=== PATIENT | female | born 1955 | race Two or more races ===

== ENCOUNTER 2017-10-26 16:32 | Inpatient (IN) | payer OTHER, SELFPAY ==
[2017-10-26 16:59] LABS: pH, Arterial 7.23 (7.35-7.45)
[2017-10-26 17:00] LABS: Actual Bicarbonate (HCO3a) 16.6 mEq/L (22-26); Base Excess (BEa) -10.4 mEq/L (0 (+/-) 2.5); CO2 Tension 40.8 mmHg (35.0-45.0); Hematocrit-ABG 38.3 % (36.0-47.0); Hemoglobin (Hb) 12.2 g/dL (12.0-16.0); O2 Tension (PaO2) 146.6 mmHg (80.0-100.0)
[2017-10-26 17:01] LABS: Analyzer IN Cardio ER; Puncture Site RRA
[2017-10-26 18:31] LABS: Magnesium 1.1 mg/dL (1.6-2.6); Phosphorus 3.1 mg/dL (2.3-4.7)
--- NOTE | 2017-10-26 19:39 | RAD ---
CHEST ONE VIEW 10/26/17 HISTORY: Septic shock. Chest pain. FINDINGS: No comparison. The cardiac silhouette is magnified by projection. Pulmonary vasculature is unremarkable. Mediastinum is midline. A right subclavian central venous catheter is buckled over the superior vena cava, with the tip directed over the junction of the brachiocephalic veins. No evidence of pneumothorax. traffic monitor specialist leads overlie the chest. IMPRESSION: Right subclavian central venous catheter is buckled over the superior vena cava. If it flushes; howev er, it is probably in an acceptable position. POS: [facility]
[2017-10-26] MEDS ORDERED: Norepinephrine 8 MG/0.9% NS 250 ML IVPB PRN (20:49)
[2017-10-26] MEDS ORDERED: Lacri-Lube Opth Oint 3.5 GM TUBE EA EYE PRN (20:49)
[2017-10-26] MEDS ORDERED: Acetaminophen 650 MG/20.3 ML UDCUP PO PRN (20:49)
[2017-10-26] MEDS ORDERED: Acetaminophen 325 MG Suppository PR PRN (20:49)
[2017-10-26] MEDS ORDERED: Ondansetron HCl/PF 4 MG/2 ML Vial IVP PRN (20:49)
[2017-10-26] MEDS ORDERED: Senokot 8.6 MG TAB PO PRN (20:51)
[2017-10-26] MEDS ORDERED: Calcium Carbonate 500 MG ChewTAB PO PRN (20:51)
[2017-10-26] MEDS ORDERED: Famotidine 20 MG TAB PO SCH (21:00)
[2017-10-26] MEDS ORDERED: Norepinephrine 8 MG in Sodium Chloride 0.9% 250 ML 250 ML IVPB PRN (21:09)
[2017-10-26] MEDS ORDERED: Magnesium Sulfate 4 GM in Sodium Chloride 0.9% 250 ML 250 ML IVPB SCH (21:15)
[2017-10-26] MEDS ORDERED: Meropenem 1 GM in Sodium Chloride 0.9% 100 ML IVPB SCH (22:00)
[2017-10-26] MEDS: Sodium Chloride 0.9% 1,000 ML IV SCH (23:05)
[2017-10-26] MEDS: Docusate 100 MG CAP PO SCH (23:13)
[2017-10-26] MEDS: Meropenem 1 GM in Sterile Water 20 ML SLOW IVP SCH (23:17)
--- NOTE | 2017-10-26 23:20 | PDOC.PN ---
- Subjective Encounter Start Date: 10/26/17 Encounter Start Time: 20:00 Patient seen and examined. Note dictated. - Objective Resuscitation Status: Resuscitation Status FULL:Full Resuscitation MAR Reviewed: Yes Vital Signs & Weight: Vital Signs (12 hours) Temp Pulse Resp Pulse Ox 10/26/17 20:00 97.9 F 87 19 98 10/26/17 19:29 87 20 100 Most Recent Monitor Data Heart Rate from ECG 83 NIBP 108/63 NIBP BP-Mean 70 Respiration from ECG 20 SpO2 99 I&O: 10/25/17 10/26/17 10/27/17 06:59 06:59 06:59 Intake Total 0 Output Total 320 Balance -320 Additional Labs: Laboratory Tests 10/26/17 17:52 Magnesium 1.1 L Phys Exam - Physical Examination Pt in mild resp distress, on NIPPV HEENT: PERRLA, moist MMs, sclera anicteric Neck: no nodes, no JVD, supple Respiratory: no rales Minimal wheezing/rhonchi, Symmetrical. Cardiovascular: RRR, no rub no heaves/pulsations Gastrointestinal: soft, non-tender, no distention, positive bowel sounds Musculoskeletal: no edema Neurological: non-focal, normal sensation, moves all 4 limbs Psychiatric: normal affect, A&O x 3 Skin: no rash Dx/Plan - Plan continue antibiotics, respiratory therapy, DVT proph w/lovenox, DVT proph w/SCDs * Dictated Review of Systems - Review of Systems Other: Cannot be reliably obtained due to NIPPV - Medications/Allergies Allergies/Adverse Reactions: Allergies Allergy/AdvReac Type Severity Reaction Status Date / Time Quinolones Allergy Verified 10/26/17 20:01 Medications: Current Medications Acetaminophen (Tylenol Elixir) 650 mg PO Q6H PRN PRN Reason: Fever > 101 or Mild Pain Acetaminophen (Tylenol) 650 mg [place] Q6H PRN PRN Reason: Fever > 101 or Mild Pain Acetaminophen (Tylenol) 650 mg PO Q4H PRN PRN Reason: Headache/Fever or Pain Albuterol/Ipratropium (Duoneb) 3 ml NEB [id number] SANDRA Albuterol/Ipratropium (Duoneb) 3 ml NEB Q2H PRN PRN Reason: SOB &/or Wheezing Calcium Carbonate (Tums) 1,000 mg PO Q4H PRN PRN Reason: Heartburn or Indigestion Docusate Sodium (Colace) 100 mg PO BID [facility] Last Admin: 10/26/17 23:13 Dose: 100 mg Enoxaparin Sodium (Lovenox) 40 mg SC 0900 [facility] Magnesium Sulfate 4 gm/ Sodium (Chloride) 258 mls @ 86 mls/hr IVPB NOW SANDRA Stop: 10/27/17 00:14 Last Admin: 10/26/17 23:01 Dose: 258 mls Vancomycin HCl 1 gm/ Device 200 mls @ 200 mls/hr IVPB ASDIR [facility] Norepinephrine Bitartrate (Levophed) 250 mls @ 0 mls/hr IVPB PRN PRN; Protocol ; Titrate PRN Reason: To maintain MAP > 65 Sodium Chloride (Normal Saline 0.9%) 1,000 mls @ 50 mls/hr IV .Q20H [facility] Last Admin: 10/26/17 23:05 Dose: 1,000 mls Norepinephrine Bitartrate 8 mg (/ Sodium Chloride) 258 mls @ 0 mls/hr IVPB PRN PRN; Protocol; Titrate PRN Reason: To maintain MAP > 65 Meropenem 1 gm/ Sterile Water 20 mls @ 240 mls/hr SLOW IVP 0600,1400,2200 [facility] Last Admin: 10/26/17 23:17 Dose: 20 mls Mineral Oil/White Petrolatum (Lacri-Lube Ointment) 0 gm EA EYE PRN PRN PRN Reason: Dry Eyes Miscellaneous Medication (Pharmacy To Dose) 1 each IVPB ONE PRN PRN Reason: Pharmacy to dose Ondansetron HCl (Zofran) 4 mg IVP Q6H PRN PRN Reason: Nausea/Vomiting Pantoprazole Sodium (Protonix) 40 mg PO DAILY [facility] Senna (Senokot) 2 tab PO HSPRN PRN PRN Reason: Constipation Sodium Chloride (Flush - Normal Saline) 10 ml IVF PRN PRN PRN Reason: Saline Flush
--- NOTE | 2017-10-26 23:44 | HP ---
DATE OF ADMISSION: 10/26/2017 PRIMARY CARE PHYSICIAN: Dr. Vasquez. CHIEF COMPLAINT: Fever with upper respiratory tract infection. HISTORY OF PRESENT ILLNESS: Patient is a 62-year-old female with COPD with ongoing tobacco abuse who presented to her primary care physician's office earlier today with upper respiratory tract infectio n over the last 2 days. She also had subjective fever. Her grandchild has been sick. She also had nasal drainage along with productive cough. She also complained of generalized aches and fatigue. S he had chest congestion along with wheezing as well. No skin rash, dysuria, hematuria, urgency, naus ea, vomiting, diarrhea reported. At the primary care physician's office, the patient received intramuscular Rocephin 250 mg, Kenalog 1 0 mg and 40 mg Depo-Medrol after a negative influenza screen. She was then discharged home. She had a syncopal episode outside the primary care physician's office for which she was sent to [facility]. Patient was also lethargic and in respiratory distress. Her O2 sats were in 80s. Bl ood pressure was 43/30. She received 6 liters of IV fluid along with vancomycin. She was placed on CPAP. She was transferred to this facility by air ambulance. Her blood pressure improved to 93/58 a fter IV fluids. She was started on Levophed. A central line was placed at this facility. PAST MEDICAL HISTORY: 1. COPD. 2. Tobacco dependence. 3. Hyperlipidemia. 4. Diverticulosis. 5. Fibromyalgia. 6. Chronic back pain. 7. Gastroesophageal reflux disease. PAST SURGICAL HISTORY: 1. Tonsillectomy in 1970, appendectomy in 1984, cholecystectomy in 1984. 2. EGD in 08/2017 that showed moderate gastritis involving the mid and the distal stomach. 3. Colonoscopy in 2013 that showed mild sigmoid colon diverticulosis along with internal hemorrhoids . 4. Back injections for chronic back pain. ALLERGIES: Patient is allergic to QUINOLONES. CURRENT HOME MEDICATIONS: Nebulizer treatment as needed, diclofenac 50 mg daily, Advair Diskus 250/5 0 twice a day as needed, Protonix 40 mg once a day. SOCIAL HISTORY: The patient denies any alcohol or drug use. She has history of smoking. FAMILY HISTORY: Father with emphysema. REVIEW OF SYSTEMS, PHYSICAL EXAMINATION: Please refer to progress note from today. LABORATORY DATA AND X-RAY FINDINGS: From [facility]. 1. Chemistries showed sodium of 135, potassium 3.3, chloride 98, bicarbonate 22, BUN 10, creatinine 1.1. 2. Bilirubin was 0.5. Total CK 104. WBC was 13,000 with hemoglobin 15, hematocrit 44.6, platelet o f 292. 3. Urinalysis was negative for WBC or bacteria. 4. Chest x-ray at [facility] was negative for infiltrate. 5. Telemetry monitoring by my review showed sinus rhythm. 6. Blood gases at this facility showed pH 7.23 with pCO2 of 40.8, bicarbonate 16.6. 7. Magnesium 1.1. Lactic acid was 1.3. Cortisol level 15.0. 8. Chest x-ray by my review was negative for infiltrate. IMPRESSION AND PLAN: 1. Severe sepsis with acute organ dysfunction/septic shock. Exact etiology unclear, probably upper respiratory tract infection/acute bronchitis. 2. Chronic obstructive pulmonary disease exacerbation/acute hypoxic respiratory failure status post noninvasive positive pressure ventilation. 3. Hypomagnesemia. 4. Ongoing tobacco abuse. 5. Chronic pain syndrome. 6. Hyperlipidemia. 7. Gastroesophageal reflux disease. 8. Depression. 9. Diverticulosis. 10. Metabolic acidosis. 12. Obesity with a BMI of 34. PLAN: The patient will be monitored in the Intensive Care Unit. We will replace magnesium. We will continue vancomycin and meropenem empirically. The patient has received 6 liters of IV fluid. We w ill continue NS at 50 mL per hour. Continue Levophed. Continue proton pump inhibitors. P.r.n. medi cations. Deep venous thrombosis prophylaxis. Tobacco cessation was emphasized. Due to buckling of the central venous catheter, I do not thing CVP monitoring would be helpful. We will consult Vamshi Ferrara in a.m. Continue noninvasive positive pressure ventilation for now. The right subclavian skyla tral venous catheter is buckled over the superior vena cava. We will replace magnesium and recheck l abs in a.m. CODE STATUS: FULL CODE. Plan of care was discussed with the patient. She stated understanding
[2017-10-27 03:16] VITALS: BMI 20.8
[2017-10-27 05:12] LABS: Band 7 % (5-11); Hemoglobin 12.7 g/dL (12.0-16.0); MDiff Complete? YES; Mean Corpuscular HGB CONC 33.2 g/dL (32.0-36.0); Mean Corpuscular Hemoglobin 33.5 pg (27.0-31.0); Mean Platelet Volume 7.8 fL (7.4-10.4); Monocytes 2 % (0-10); Neutrophil 91 % (42-75); Platelet Count 238 thou/uL (130-400); Red Blood Cell (RBC) Count 3.79 mill/uL (4.20-5.40); White Blood Cell (WBC) Count 9.2 thou/uL (4.8-10.8)
[2017-10-27 05:21] LABS: ALT (SGPT) 96 U/L (8-55); AST (SGOT) 111 U/L (5-34); Alkaline Phosphatase 117 U/L (40-150); Anion Gap 10 mmol/L (10-20); BUN (Urea Nitrogen) 8 mg/dL (9.8-20.1); Bilirubin, Total 0.3 mg/dL (0.2-1.2); Calc. Creatinine Clearance 72 mL/min (70-130); Calcium 7.8 mg/dL (7.8-10.44); Carbon Dioxide 22 mmol/L (22-29); Chloride 112 mmol/L (98-107); Estimated GFR-MDRD 85; Globulin 2.6 g/dL (2.4-3.5); Glucose 144 mg/dL (70-105); Magnesium 2.4 mg/dL (1.6-2.6); Protein, Total 5.6 g/dL (6.0-8.3); Sodium 140 mmol/L (136-145)
[2017-10-27] MEDS: Meropenem 1 GM in Sterile Water 20 ML SLOW IVP SCH ×3 (06:35→21:00)
--- NOTE | 2017-10-27 08:13 | RAD ---
PORTABLE AP CHEST: Date: 10/27/17 HISTORY: Sepsis, pneumonia. COMPARISON: 10/26/17. FINDINGS: Right subclavian central venous catheter is again noted in place. The tip now courses across the midl ine to overlie the left clavicular head. Cardiac silhouette and pulmonary vasculature are within norm al limits. Lungs are clear. Vascular calcifications seen in the thoracic aorta. No other interval reynaldo nge. IMPRESSION: Right subclavian central venous catheter remains in place. The catheter now courses across the midlin e with the tip overlying the left clavicular head. Chest is otherwise stable. POS: [facility]
[2017-10-27] MEDS: Docusate 100 MG CAP PO SCH ×2 (08:54→20:40)
[2017-10-27] MEDS ORDERED: Enoxaparin Sodium 40 MG/0.4 ML SYRINGE SC SCH (09:00)
--- NOTE | 2017-10-27 09:20 | CON ---
DATE OF CONSULTATION: 10/27/2017 CONSULTING PHYSICIAN: Hospitalist group. REASON FOR CONSULTATION: Septic shock. HISTORY OF PRESENT ILLNESS: Ms. Krishna is a pleasant 62-year-old female who presented to her primary care physician's office yesterday with symptoms of upper respiratory infection for the last 2 days. She was given IM Depo-Medrol, Kenalog and Rocephin and then sent home. She came back later after hav ing a syncopal episode. She was found to be extremely hypotensive with low O2 sats. She was given u p to 6 liters of IV fluid and was placed on broad-spectrum IV antibiotics, IV Levophed and transferre d to this facility. She says she feels better today. She was weaned off the vasopressor overnight a nd has had a good blood pressure all morning. PAST MEDICAL HISTORY: Hyperlipidemia, fibromyalgia, chronic back pain, gastroesophageal reflux, hist ory and physical says she has COPD, but she denies. PAST SURGICAL HISTORY: Tonsillectomy, cholecystectomy, appendectomy, EGD and colonoscopy, back injec tions. ALLERGIES: QUINOLONES cause hives. MEDICATIONS PRIOR TO ADMISSION: Diclofenac, Advair, Protonix, nebulization treatments. SOCIAL HISTORY: Smokes 1 pack a day and has done so all of her adult life, does not consume alcohol, does not use illicit drugs. FAMILY MEDICAL HISTORY: Remarkable for father with emphysema. REVIEW OF SYSTEMS: A 12-point review of systems otherwise negative. PHYSICAL EXAMINATION: VITAL SIGNS: Temperature 98, pulse 92, blood pressure 130/64, O2 sat 100%. HEENT: Unremarkable. NECK: No JVD. LUNGS: Clear to auscultation. CARDIAC: S1, S2 regular, without murmur. ABDOMEN: Soft, nontender, nondistended. EXTREMITIES: No clubbing, cyanosis or edema. NEUROLOGIC: Nonfocal. LABORATORY DATA: Sodium 140, potassium 4.0, chloride 112, CO2 22, BUN 8, creatinine 0.7, glucose 144 . White blood cell count 9.2, hematocrit 38.3, platelet count 238. Chest x-ray showed no obvious mass, effusion or infiltrate. ASSESSMENT: Septic shock which appears to have resolved after hydration. Source is not clear at thi s time. PLAN: The patient will be transferred to the floor. She will continue broad spectrum IV antibiotics . We will follow up culture results. Continue nebulization treatments and low flow oxygen.
[2017-10-27] MEDS: Vancomycin HCl 1.25 GM in Sodium Chloride 0.9% 250 ML 250 ML IVPB SCH (13:33)
[2017-10-27] MEDS: Diabetic Tussin 200 MG/10 ML UDCUP PO PRN (14:43)
[2017-10-27] MEDS: Sodium Chloride 0.9% 1,000 ML IV SCH ×2 (18:10→20:54)
--- NOTE | 2017-10-27 19:24 | PDOC.PN ---
- Subjective Encounter Start Date: 10/27/17 Encounter Start Time: 12:30 Patient seen and examined. No new complaints. Off pressors. No overnight events - Objective Resuscitation Status: Resuscitation Status FULL:Full Resuscitation MAR Reviewed: Yes Vital Signs & Weight: Vital Signs (12 hours) Temp Pulse Resp BP Pulse Ox 10/27/17 18:57 124 H 18 92 L 10/27/17 15:55 98.5 F 112 H 18 132/65 94 L 10/27/17 13:58 85 18 96 10/27/17 11:00 97.7 F 105 H 18 128/60 94 L 10/27/17 08:00 98 F 110 H 19 98 10/27/17 07:52 99 10/27/17 07:50 100 20 98 Weight Admit Weight 117 lb 2 oz Most Recent Monitor Data Heart Rate from ECG 105 NIBP 125/62 NIBP BP-Mean 73 Respiration from ECG 25 SpO2 100 I&O: 10/26/17 10/27/17 10/28/17 06:59 06:59 06:59 Intake Total 827 1284 Output Total 2069 0980 Balance -4432 -4348 Result Diagrams: 10/27/17 04:39 10/27/17 04:39 EKG Reviewed by me: Yes (Tele SR) Phys Exam - Physical Examination Constitutional: NAD HEENT: moist MMs, sclera anicteric Neck: no JVD Respiratory: no rales Scat rhonchi/wheezing, Symmetrical Cardiovascular: RRR, no rub no heaves/pulsations Gastrointestinal: soft, non-tender, no distention, positive bowel sounds Musculoskeletal: no edema Neurological: non-focal, normal sensation, moves all 4 limbs Psychiatric: normal affect, A&O x 3 Skin: no rash Dx/Plan - Plan DVT proph w/lovenox, DVT proph w/SCDs IMPRESSION: 1. Severe sepsis with acute organ dysfunction/septic shock. Exact etiology unclear, probably upper respiratory tract infection/acute bronchitis. 2. Chronic obstructive pulmonary disease exacerbation/acute hypoxic respiratory failure status post noninvasive positive pressure ventilation. 3. Hypomagnesemia. 4. Ongoing tobacco abuse. Counselled 5. Chronic pain syndrome. 6. Hyperlipidemia. 7. Gastroesophageal reflux disease. 8. Depression. 9. Diverticulosis. 10. Metabolic acidosis. 12. Obesity with a BMI of 34. PLAN: * Resp viral panel * Critical care input appreciated * Await cultures * Cont Atbx * AM labs * Cont current meds as below * CHASE Sim * Cont IVF @ 50 Review of Systems - Review of Systems Respiratory: Cough, Sputum, Wheezing. negative: Dry, Shortness of Breath, Hemoptysis, SOB with Excertion, Pleuritic Pain Cardiovascular: negative: chest pain, palpitations, orthopnea, paroxysmal nocturnal dyspnea, edema, light headedness - Medications/Allergies Allergies/Adverse Reactions: Allergies Allergy/AdvReac Type Severity Reaction Status Date / Time Quinolones Allergy Verified 10/26/17 20:01 Medications: Current Medications Acetaminophen (Tylenol Elixir) 650 mg PO Q6H PRN PRN Reason: Fever > 101 or Mild Pain Acetaminophen (Tylenol) 650 mg RI Q6H PRN PRN Reason: Fever > 101 or Mild Pain Acetaminophen (Tylenol) 650 mg PO Q4H PRN PRN Reason: Headache/Fever or Pain Albuterol/Ipratropium (Duoneb) 3 ml NEB [id number] [facility] Last Admin: 10/27/17 18:57 Dose: 3 ml Albuterol/Ipratropium (Duoneb) 3 ml NEB Q2H PRN PRN Reason: SOB &/or Wheezing Calcium Carbonate (Tums) 1,000 mg PO Q4H PRN PRN Reason: Heartburn or Indigestion Docusate Sodium (Colace) 100 mg PO BID [facility] Last Admin: 10/27/17 08:54 Dose: 100 mg Guaifenesin (Robitussin Sf) 200 mg PO Q4H PRN PRN Reason: Cough Last Admin: 10/27/17 14:43 Dose: 200 mg Guaifenesin (Mucinex) 600 mg PO Q12HR [facility] Vancomycin HCl 1.25 gm/ Sodium (Chloride) 250 mls @ 200 mls/hr IVPB 1400 [facility] Last Admin: 10/27/17 13:33 Dose: 250 mls Sodium Chloride (Normal Saline 0.9%) 1,000 mls @ 50 mls/hr IV .Q20H [facility] Last Admin: 10/27/17 18:10 Dose: Not Given Meropenem 1 gm/ Sterile Water 20 mls @ 240 mls/hr SLOW IVP 0600,1400,2200 [facility] Last Admin: 10/27/17 13:33 Dose: 20 mls Mineral Oil/White Petrolatum (Lacri-Lube Ointment) 0 gm EA EYE PRN PRN PRN Reason: Dry Eyes Miscellaneous Medication (Pharmacy To Dose) 1 each IVPB ONE PRN PRN Reason: Pharmacy to dose Stop: 11/06/17 20:49 Nicotine (Nicoderm Patch) 14 mg TD Q24HR PRN PRN Reason: Smoking craving Ondansetron HCl (Zofran) 4 mg IVP Q6H PRN PRN Reason: Nausea/Vomiting Pantoprazole Sodium (Protonix) 40 mg PO DAILY [facility] Last Admin: 10/27/17 08:54 Dose: 40 mg Senna (Senokot) 2 tab PO HSPRN PRN PRN Reason: Constipation Sodium Chloride (Flush - Normal Saline) 10 ml IVF PRN PRN PRN Reason: Saline Flush
[2017-10-27] MEDS: Acetaminophen 325 MG TAB PO PRN (20:39)
[2017-10-27] MEDS: guaiFENesin ER 600 MG TAB PO SCH (20:39)
[2017-10-27] MEDS: Loratadine 10 MG TAB PO SCH (20:40)
[2017-10-27] MEDS: Nicotine 14 MG PATCH TD PRN (20:48)
[2017-10-28] MEDS: Meropenem 1 GM in Sterile Water 20 ML SLOW IVP SCH ×3 (05:52→21:33)
[2017-10-28 06:02] LABS: ALT (SGPT) 73 U/L (8-55); AST (SGOT) 64 U/L (5-34); Albumin 3.3 g/dL (3.5-5.0); Alkaline Phosphatase 105 U/L (40-150); Anion Gap 9 mmol/L (10-20); BUN (Urea Nitrogen) 5 mg/dL (9.8-20.1); Bilirubin, Total 0.3 mg/dL (0.2-1.2); Calc. Creatinine Clearance 72 mL/min (70-130); Calcium 8.7 mg/dL (7.8-10.44); Carbon Dioxide 27 mmol/L (22-29); Chloride 108 mmol/L (98-107); Estimated GFR-MDRD Greater than 90; Globulin 2.8 g/dL (2.4-3.5); Glucose 116 mg/dL (70-105); Magnesium 1.7 mg/dL (1.6-2.6); Potassium 3.7 mmol/L (3.5-5.1); Protein, Total 6.1 g/dL (6.0-8.3); Sodium 140 mmol/L (136-145)
[2017-10-28 06:31] LABS: Band 15 % (5-11); Hemoglobin 11.7 g/dL (12.0-16.0); Lymphocytes 9 % (21-51); MDiff Complete? YES; Mean Corpuscular HGB CONC 31.7 g/dL (32.0-36.0); Mean Corpuscular Volume 97.7 fl (81.0-99.0); Mean Platelet Volume 7.9 fL (7.4-10.4); Monocytes 5 % (0-10); Neutrophil 71 % (42-75); Platelet Count 257 thou/uL (130-400); Red Blood Cell (RBC) Count 3.78 mill/uL (4.20-5.40); White Blood Cell (WBC) Count 7.9 thou/uL (4.8-10.8)
[2017-10-28] MEDS: Saccharomyces boulardii 250 MG CAP PO SCH (08:00)
[2017-10-28] MEDS: Docusate 100 MG CAP PO SCH ×2 (08:01→21:35)
[2017-10-28] MEDS: guaiFENesin ER 600 MG TAB PO SCH (08:01)
--- NOTE | 2017-10-28 10:07 | PRG ---
DATE OF SERVICE: 10/28/2017 The patient complained that she had fever last night. PHYSICAL EXAMINATION: VITAL SIGNS: Temperature 100.3 last night, 98.4 today, pulse 109, respirations 16, O2 sat 94% on 2 l iters. HEENT: Unremarkable. NECK: No JVD. LUNGS: Coarse rhonchi. CARDIAC: S1 and S2 regular. ABDOMEN: Soft. EXTREMITIES: No edema. LABORATORY: White blood cell count 7.9, hematocrit 36, platelet count 257. Sodium 140, potassium 3. 7, chloride 108, CO2 27, BUN 5, creatinine 0.6, glucose 116. Cultures show no growth to date. Respi ratory panel was negative. ASSESSMENT: Septic shock with unclear source. Given that she is beginning to cough and bring up spu mariela this is probably pneumonia. PLAN: 1. Continue broad spectrum IV antibiotics. 2. Recheck x-ray tomorrow.
[2017-10-28] MEDS: Vancomycin HCl 1.25 GM in Sodium Chloride 0.9% 250 ML 250 ML IVPB SCH (13:42)
[2017-10-28] MEDS: Acetaminophen 325 MG TAB PO PRN (13:44)
[2017-10-28 13:57] LABS: Vancomycin, Trough 4.1 ug/mL
--- NOTE | 2017-10-28 18:34 | PDOC.PN ---
- Subjective Encounter Start Date: 10/28/17 Encounter Start Time: 16:00 Patient seen and examined. Feels weak. Productive cough. Was febrile last night. No overnight events - Objective Resuscitation Status: Resuscitation Status FULL:Full Resuscitation MAR Reviewed: Yes Vital Signs & Weight: Vital Signs (12 hours) Temp Pulse Resp BP BP Pulse Ox 10/28/17 15:54 98 F 107 H 16 145/81 H 92 L 10/28/17 14:48 90 L 10/28/17 14:37 120 H 20 90 L 10/28/17 11:59 98.4 F 128 H 24 H 140/76 90 L 10/28/17 10:54 111 H 20 90 L 10/28/17 08:00 98.4 F 109 H 16 161/86 H 182/86 H 94 L Weight Admit Weight 117 lb 2 oz Weight 106 lb 3.2 oz Most Recent Monitor Data Heart Rate from ECG 105 NIBP 125/62 NIBP BP-Mean 73 Respiration from ECG 25 SpO2 100 I&O: 10/27/17 10/28/17 10/29/17 06:59 06:59 06:59 Intake Total 827 2109 1850 Output Total 2060 5630 1500 Balance -2873 -5509 350 Result Diagrams: 10/28/17 05:09 10/28/17 05:09 EKG Reviewed by me: Yes (Tele SR/ST) Phys Exam - Physical Examination Constitutional: NAD (ill appearing) Respiratory: no wheezing Scat rales at bases Cardiovascular: RRR, no rub Gastrointestinal: soft, non-tender, no distention, positive bowel sounds Musculoskeletal: no edema Neurological: moves all 4 limbs Psychiatric: A&O x 3 Dx/Plan - Plan plan discussed w/ family (daughter), DVT proph w/lovenox, DVT proph w/SCDs IMPRESSION: 1. Severe sepsis with acute organ dysfunction/septic shock. Exact etiology unclear, probably upper respiratory tract infection/acute bronchitis. 2. Chronic obstructive pulmonary disease exacerbation/acute hypoxic respiratory failure status post noninvasive positive pressure ventilation. 3. Hypomagnesemia. 4. Ongoing tobacco abuse. Counselled 5. Chronic pain syndrome. 6. Hyperlipidemia. 7. Gastroesophageal reflux disease. 8. Depression. 9. Diverticulosis. 10. Metabolic acidosis. 12. Obesity with a BMI of 34. 13. Weight loss PLAN: * Resp viral panel negative * Pulmonary following * Await cultures * Cont Atbx * AM labs * Cont current meds as below * Daughter concerned about Malignancy due to significant weight loss and h/o smoking * CT chest in AM to r/o malignancy * Cont IVF @ 50 * Check TSH Review of Systems - Review of Systems Constitutional: fever, weakness, malaise. negative: chills, sweats Cardiovascular: negative: chest pain, palpitations, orthopnea, paroxysmal nocturnal dyspnea, edema, light headedness Gastrointestinal: negative: Nausea, Vomiting, Abdominal Pain, Diarrhea, Constipation, Melena, Hematochezia - Medications/Allergies Allergies/Adverse Reactions: Allergies Allergy/AdvReac Type Severity Reaction Status Date / Time Quinolones Allergy Verified 10/26/17 20:01 Medications: Current Medications Acetaminophen (Tylenol Elixir) 650 mg PO Q6H PRN PRN Reason: Fever > 101 or Mild Pain Acetaminophen (Tylenol) 650 mg [place] Q6H PRN PRN Reason: Fever > 101 or Mild Pain Acetaminophen (Tylenol) 650 mg PO Q4H PRN PRN Reason: Headache/Fever or Pain Last Admin: 10/28/17 13:44 Dose: 650 mg Albuterol/Ipratropium (Duoneb) 3 ml NEB [id number] ON [facility] Last Admin: 10/28/17 18:32 Dose: 3 ml Albuterol/Ipratropium (Duoneb) 3 ml NEB Q2H PRN PRN Reason: SOB &/or Wheezing Calcium Carbonate (Tums) 1,000 mg PO Q4H PRN PRN Reason: Heartburn or Indigestion Docusate Sodium (Colace) 100 mg PO BID [facility] Last Admin: 10/28/17 08:01 Dose: Not Given Enoxaparin Sodium (Lovenox) 40 mg SC 2100 [facility] Guaifenesin (Robitussin Sf) 200 mg PO Q4H PRN PRN Reason: Cough Last Admin: 10/27/17 14:43 Dose: 200 mg Sodium Chloride (Normal Saline 0.9%) 1,000 mls @ 50 mls/hr IV .Q20H [facility] Last Admin: 10/27/17 20:54 Dose: 1,000 mls Meropenem 1 gm/ Sterile Water 20 mls @ 240 mls/hr SLOW IVP 0600,1400,2200 [facility] Last Admin: 10/28/17 13:41 Dose: 20 mls Vancomycin HCl 750 mg/ Sodium (Chloride) 250 mls @ 250 mls/hr IVPB Q8HR [facility] Loratadine (Claritin) 10 mg PO QPM [facility] Last Admin: 10/27/17 20:40 Dose: 10 mg Mineral Oil/White Petrolatum (Lacri-Lube Ointment) 0 gm EA EYE PRN PRN PRN Reason: Dry Eyes Miscellaneous Medication (Pharmacy To Dose) 1 each IVPB ONE PRN PRN Reason: Pharmacy to dose Stop: 11/06/17 20:49 Nicotine (Nicoderm Patch) 14 mg TD Q24HR PRN PRN Reason: Smoking craving Last Admin: 10/27/17 20:48 Dose: 14 mg Ondansetron HCl (Zofran) 4 mg IVP Q6H PRN PRN Reason: Nausea/Vomiting Pantoprazole Sodium (Protonix) 40 mg PO BID [facility] Saccharomyces Boulardii (Florastor) 250 mg PO DAILY [facility] Last Admin: 10/28/17 08:00 Dose: 250 mg Senna (Senokot) 2 tab PO HSPRN PRN PRN Reason: Constipation Sodium Chloride (Flush - Normal Saline) 10 ml IVF PRN PRN PRN Reason: Saline Flush
[2017-10-28] MEDS: Vancomycin HCl 750 MG in Sodium Chloride 0.9% 250 ML 250 ML IVPB SCH (21:33)
[2017-10-28] MEDS: Loratadine 10 MG TAB PO SCH (21:34)
[2017-10-28] MEDS: Enoxaparin Sodium 40 MG/0.4 ML SYRINGE SC SCH (21:34)
[2017-10-28] MEDS: Nicotine 14 MG PATCH TD PRN (21:41)
[2017-10-29] MEDS: Diabetic Tussin 200 MG/10 ML UDCUP PO PRN (04:22)
[2017-10-29] MEDS: Acetaminophen 325 MG TAB PO PRN (04:22)
[2017-10-29] MEDS: Vancomycin HCl 750 MG in Sodium Chloride 0.9% 250 ML 250 ML IVPB SCH (05:12)
[2017-10-29] MEDS: Meropenem 1 GM in Sterile Water 20 ML SLOW IVP SCH (05:12)
[2017-10-29 05:46] LABS: Anion Gap 10 mmol/L (10-20); BUN (Urea Nitrogen) 6 mg/dL (9.8-20.1); Band 4 % (5-11); Calc. Creatinine Clearance 75 mL/min (70-130); Calcium 9.3 mg/dL (7.8-10.44); Carbon Dioxide 29 mmol/L (22-29); Chloride 104 mmol/L (98-107); Estimated GFR-MDRD Greater than 90; Glucose 107 mg/dL (70-105); Hemoglobin 12.8 g/dL (12.0-16.0); Lymphocytes 17 % (21-51); MDiff Complete? YES; Magnesium 1.7 mg/dL (1.6-2.6); Mean Corpuscular HGB CONC 33.5 g/dL (32.0-36.0); Mean Corpuscular Hemoglobin 32.7 pg (27.0-31.0); Mean Corpuscular Volume 97.4 fl (81.0-99.0); Mean Platelet Volume 7.6 fL (7.4-10.4); Monocytes 5 % (0-10); Neutrophil 74 % (42-75); Platelet Count 242 thou/uL (130-400); Potassium 3.9 mmol/L (3.5-5.1); RBC Distribution Width 12.1 % (11.5-14.5); Red Blood Cell (RBC) Count 3.92 mill/uL (4.20-5.40); Sodium 139 mmol/L (136-145)
[2017-10-29] MEDS: Docusate 100 MG CAP PO SCH ×2 (09:29→20:42)
[2017-10-29] MEDS: Saccharomyces boulardii 250 MG CAP PO SCH (09:29)
[2017-10-29] MEDS: Sodium Chloride 0.9% 1,000 ML IV SCH ×2 (09:30→20:47)
--- NOTE | 2017-10-29 11:35 | CT ---
CT OF THE CHEST WITH CONTRAST: COMPARISON: Chest x-ray 3 09/15. TECHNIQUE: Multiple contiguous axial images were obtained in a CT of the chest with contrast. Coronal reformats were performed. HISTORY: Pneumonia. FINDINGS: There are multifocal opacities in the right upper lobe consistent with pneumonia. No other infiltrat es are seen in the rest of the lungs. No focal pulmonary mass is identified. No pneumothorax or ple ural effusion are seen. The heart is normal in size without focal cardiac abnormality. No hilar or mediastinal lymphadenopat hy are seen. There is an anterior mediastinal mass which his nonspecific and well circumscribed ashley uring 2.2 cm in size. Degenerative changes are seen in the spine. There is a small cyst in the right kidney. The other vi sualized subdiaphragmatic structures are unremarkable. The chest wall soft tissues are unremarkable. IMPRESSION: 1. Right upper lobe pneumonia. 2. There is an anterior mediastinal mass which is nonspecific. POS: [facility]
[2017-10-29] MEDS ORDERED: Cefepime 1 GM in Sodium Chloride 0.9% 100 ML IVPB SCH (12:00)
[2017-10-29] MEDS ORDERED: guaiFENesin ER 600 MG TAB PO SCH (12:00)
[2017-10-29] MEDS ORDERED: Budesonide 0.5 MG/2 ML NEB INH SCH (12:00)
[2017-10-29] MEDS: Azithromycin 500 MG in Sodium Chloride 0.9% 250 ML 250 ML IVPB SCH (12:47)
[2017-10-29] MEDS: Cefepime 1 GM, Admixture Fee 1 EACH in Sterile Water 10 ML SLOW IVP SCH (15:00)
[2017-10-29] MEDS: Budesonide 0.5 MG/2 ML NEB INH SCH (18:38)
--- NOTE | 2017-10-29 19:02 | PDOC.PN ---
- Subjective Encounter Start Date: 10/29/17 Encounter Start Time: 13:00 Patient seen and examined. Feels somewhat better. Dry cough. No overnight events - Objective Resuscitation Status: Resuscitation Status FULL:Full Resuscitation MAR Reviewed: Yes Vital Signs & Weight: Vital Signs (12 hours) Temp Pulse Resp BP BP BP Pulse Ox 10/29/17 18:37 104 H 18 90 L 10/29/17 15:10 98.7 F 123 H 17 171/80 H 92 L 10/29/17 14:33 113 H 18 94 L 10/29/17 11:24 97.6 F 114 H 18 136/73 90 L 10/29/17 10:22 108 H 18 94 L 10/29/17 08:00 97.7 F 106 H 16 10/29/17 07:37 97.7 F 106 H 16 160/86 H 165/97 H 170/97 H 92 L Weight Admit Weight 117 lb 2 oz Weight 102 lb Most Recent Monitor Data Heart Rate from ECG 105 NIBP 125/62 NIBP BP-Mean 73 Respiration from ECG 25 SpO2 100 I&O: 10/28/17 10/29/17 10/30/17 06:59 06:59 06:59 Intake Total 2109 1850 1999 Output Total 5630 1500 1075 Balance -3521 350 925 Result Diagrams: 10/31/17 05:09 10/31/17 05:09 Radiology Reviewed by me: Yes (CT chest RUL pneumonia) EKG Reviewed by me: Yes (Tele SR) Phys Exam - Physical Examination Constitutional: NAD HEENT: moist MMs Respiratory: no wheezing, no rhonchi Scat rales b/l Cardiovascular: RRR, no rub Gastrointestinal: soft, non-tender, positive bowel sounds Musculoskeletal: no edema Neurological: moves all 4 limbs Psychiatric: A&O x 3 Dx/Plan - Plan DVT proph w/lovenox, DVT proph w/SCDs IMPRESSION: 1. Severe sepsis with acute organ dysfunction/septic shock due to RUL pneumonia 2. Chronic obstructive pulmonary disease exacerbation/acute hypoxic respiratory failure status post noninvasive positive pressure ventilation. 3. Hypomagnesemia. 4. Ongoing tobacco abuse. Counselled 5. Chronic pain syndrome. 6. Hyperlipidemia. 7. Gastroesophageal reflux disease. 8. Depression. 9. Diverticulosis. 10. Metabolic acidosis. 12. Obesity with a BMI of 34. 13. Weight loss PLAN: * Change Atbx to Cefepime/Azithromycin * Check Urine antigen for Legionella/Strep pneumonia * Pulmonary following * Blood cultures negative * Cont Atbx * AM labs * Cont other meds as below * Cont IVF @ 50 Review of Systems - Review of Systems Respiratory: Cough, Dry. negative: Shortness of Breath, Hemoptysis, SOB with Excertion, Pleuritic Pain, Sputum, Wheezing Cardiovascular: negative: chest pain, palpitations, orthopnea, paroxysmal nocturnal dyspnea, edema, light headedness - Medications/Allergies Allergies/Adverse Reactions: Allergies Allergy/AdvReac Type Severity Reaction Status Date / Time Quinolones Allergy Verified 10/26/17 20:01 Medications: Current Medications Acetaminophen (Tylenol Elixir) 650 mg PO Q6H PRN PRN Reason: Fever > 101 or Mild Pain Acetaminophen (Tylenol) 650 mg [place] Q6H PRN PRN Reason: Fever > 101 or Mild Pain Acetaminophen (Tylenol) 650 mg PO Q4H PRN PRN Reason: Headache/Fever or Pain Last Admin: 10/29/17 04:22 Dose: 650 mg Albuterol/Ipratropium (Duoneb) 3 ml NEB [id number] [facility] Last Admin: 10/29/17 18:37 Dose: 3 ml Albuterol/Ipratropium (Duoneb) 3 ml NEB Q2H PRN PRN Reason: SOB &/or Wheezing Budesonide (Pulmicort Neb Solution) 0.5 mg INH BID-RT [facility] Last Admin: 10/29/17 18:38 Dose: 0.5 mg Calcium Carbonate (Tums) 1,000 mg PO Q4H PRN PRN Reason: Heartburn or Indigestion Docusate Sodium (Colace) 100 mg PO BID [facility] Last Admin: 10/29/17 09:29 Dose: Not Given Enoxaparin Sodium (Lovenox) 40 mg SC 2100 [facility] Last Admin: 10/28/17 21:34 Dose: 40 mg Guaifenesin (Robitussin Sf) 200 mg PO Q4H PRN PRN Reason: Cough Last Admin: 10/29/17 04:22 Dose: 200 mg Guaifenesin (Mucinex) 600 mg PO Q12HR [facility] Sodium Chloride (Normal Saline 0.9%) 1,000 mls @ 50 mls/hr IV .Q20H [facility] Last Admin: 10/29/17 09:30 Dose: Not Given Azithromycin 500 mg/ Sodium (Chloride) 250 mls @ 250 mls/hr IVPB Q24HR [facility] Last Admin: 10/29/17 12:47 Dose: 250 mls Cefepime HCl 1 gm/Miscellaneous Medication 1 each/ Sterile Water 10 mls @ 120 mls/hr SLOW IVP 0200,1400 [facility] Last Admin: 10/29/17 15:00 Dose: 10 mls Loratadine (Claritin) 10 mg PO QPM [facility] Last Admin: 10/28/17 21:34 Dose: 10 mg Mineral Oil/White Petrolatum (Lacri-Lube Ointment) 0 gm EA EYE PRN PRN PRN Reason: Dry Eyes Nicotine (Nicoderm Patch) 14 mg TD Q24HR PRN PRN Reason: Smoking craving Last Admin: 10/28/17 21:41 Dose: 14 mg Ondansetron HCl (Zofran) 4 mg IVP Q6H PRN PRN Reason: Nausea/Vomiting Pantoprazole Sodium (Protonix) 40 mg PO BID [facility] Last Admin: 10/29/17 09:29 Dose: 40 mg Saccharomyces Boulardii (Florastor) 250 mg PO DAILY [facility] Last Admin: 10/29/17 09:29 Dose: 250 mg Senna (Senokot) 2 tab PO HSPRN PRN PRN Reason: Constipation Sodium Chloride (Flush - Normal Saline) 10 ml IVF PRN PRN PRN Reason: Saline Flush
[2017-10-29] MEDS: Loratadine 10 MG TAB PO SCH (20:41)
[2017-10-29] MEDS: guaiFENesin ER 600 MG TAB PO SCH (20:41)
[2017-10-29] MEDS: Nicotine 14 MG PATCH TD PRN (20:41)
[2017-10-29] MEDS: Enoxaparin Sodium 40 MG/0.4 ML SYRINGE SC SCH (20:42)
[2017-10-29 22:52] LABS: Legionella Urinary Ag Negative (Negative); Strep pneumo Urine Ag NEGATIVE (NEGATIVE)
[2017-10-29] MEDS ORDERED: Magnesium 2 GM/NS 0.9% 100 ML 2 GM in Premix Bag 1 BAG IVPB SCH (23:00)
--- NOTE | 2017-10-29 23:07 | PRG ---
DATE OF SERVICE: 10/29/2017 SERVICE: Pulmonary Medicine. INTERVAL HISTORY: Patient is doing really quite well from a respiratory standpoint. She denies any current chest pain, fevers, chills, nausea, or vomiting. Otherwise, there has been no interval sosa e to her condition. She is coughing and started to bring up a whole bunch of yellow sputum. She fee ls much improved with an every little bit that she gets out. PHYSICAL EXAMINATION: VITAL SIGNS: Afebrile, pulse 85, blood pressure 171/80, respirations 18, saturation 92% on 3 liters nasal cannula. GENERAL: Patient is awake and alert. No apparent distress. LUNGS: Decent air entry with a slightly prolonged expiratory phase and polyphonic wheeze. Rhonchi a re also present. They are clear with cough. HEART: Normal rate, regular. ABDOMEN: Soft, nontender, nondistended. Bowel sounds are positive. MUSCULOSKELETAL: No cyanosis or clubbing. No pitting in the bilateral lower extremities. NEUROLOGIC: Grossly nonfocal. LABORATORY DATA: WBC 8.2, hemoglobin 12.8, platelets 242,000. Basic metabolic profile is completely unremarkable. Magnesium 1.7. TSH 0.8. Respiratory virus panel is negative. IMAGING: CT of the chest demonstrates right upper lobe infiltrate, which may be characteristic of pn eumonia. There is also an anterior mediastinal mass. ASSESSMENT: 1. Acute hypoxic respiratory failure, improving. 2. Community-acquired pneumonia, suspected. 3. Septic shock, resolving. 4. Anterior mediastinal mass. DISCUSSION AND PLAN: We will continue her antibiotics, and nebulized medications. Pulmonary Critica l Care will continue to follow while the patient remains in this location. The mediastinal mass will need to be addressed in the short term. It does not have any type of malignant appearance to it; ho wever, a sampling procedure may need to be arranged. Pulmonary Critical Care will continue to follow while the patient remains in-house. Magnesium will be replaced and we will repeat a level tomorrow.
[2017-10-30] MEDS: Cefepime 1 GM, Admixture Fee 1 EACH in Sterile Water 10 ML SLOW IVP SCH ×2 (02:20→14:11)
[2017-10-30] MEDS: Sodium Chloride 0.9% 1,000 ML IV SCH (05:11)
[2017-10-30] MEDS: Budesonide 0.5 MG/2 ML NEB INH SCH ×2 (06:18→18:41)
[2017-10-30] MEDS: guaiFENesin ER 600 MG TAB PO SCH ×2 (09:15→20:06)
[2017-10-30] MEDS: Saccharomyces boulardii 250 MG CAP PO SCH (09:15)
[2017-10-30] MEDS: Docusate 100 MG CAP PO SCH ×2 (09:16→20:05)
--- NOTE | 2017-10-30 11:20 | PDOC.PN ---
- Subjective Encounter Start Date: 10/30/17 Encounter Start Time: 08:10 Patient seen and examined. c/o nasal congestion. No overnight events - Objective Resuscitation Status: Resuscitation Status FULL:Full Resuscitation MAR Reviewed: Yes Vital Signs & Weight: Vital Signs (12 hours) Temp Pulse Resp BP BP BP Pulse Ox 10/30/17 11:00 97.6 F 111 H 18 141/86 H 91 L 10/30/17 10:31 102 H 18 92 L 10/30/17 08:00 97.9 F 99 17 10/30/17 07:23 97.9 F 99 17 173/93 H 165/86 H 157/85 H 91 L 10/30/17 06:19 94 L 10/30/17 06:18 98 18 94 L 10/30/17 04:48 98.0 F 101 H 17 157/82 H 94 L 10/30/17 01:21 111 H 16 91 L 10/30/17 00:00 98.0 F 104 H 20 157/82 H 97 10/29/17 23:23 98.5 F 113 H 141/89 H 94 L Weight Admit Weight 117 lb 2 oz Weight 102 lb 3.2 oz Most Recent Monitor Data Heart Rate from ECG 105 NIBP 125/62 NIBP BP-Mean 73 Respiration from ECG 25 SpO2 100 I&O: 10/29/17 10/30/17 10/31/17 06:59 06:59 06:59 Intake Total 1850 3500 Output Total 1500 1975 Balance 350 1525 Result Diagrams: 10/29/17 04:38 10/29/17 04:38 EKG Reviewed by me: Yes (nsr) Phys Exam - Physical Examination Constitutional: NAD HEENT: PERRLA, moist MMs, sclera anicteric Neck: no JVD Respiratory: no wheezing, no rales, no rhonchi reduced air entry Cardiovascular: RRR, no significant murmur, no rub Gastrointestinal: soft, non-tender, no distention, positive bowel sounds Musculoskeletal: no edema, pulses present Neurological: non-focal, normal sensation, moves all 4 limbs Psychiatric: normal affect, A&O x 3 Skin: no rash, normal turgor Dx/Plan (1) Acute respiratory failure with hypoxia Code(s): J96.01 - ACUTE RESPIRATORY FAILURE WITH HYPOXIA Status: Acute (2) COPD exacerbation Code(s): J44.1 - CHRONIC OBSTRUCTIVE PULMONARY DISEASE W (ACUTE) EXACERBATION Status: Acute (3) Community acquired bacterial pneumonia Code(s): J15.9 - UNSPECIFIED BACTERIAL PNEUMONIA Status: Acute (4) Hypomagnesemia Code(s): E83.42 - HYPOMAGNESEMIA Status: Acute (5) Mediastinal mass Status: Acute (6) Sepsis with acute organ dysfunction Code(s): A41.9 - SEPSIS, UNSPECIFIED ORGANISM; R65.20 - SEVERE SEPSIS WITHOUT SEPTIC SHOCK Status: Acute (7) Transaminitis Code(s): R74.0 - NONSPEC ELEV OF LEVELS OF TRANSAMNS & LACTIC ACID DEHYDRGNSE Status: Acute (8) GERD (gastroesophageal reflux disease) Code(s): K21.9 - GASTRO-ESOPHAGEAL REFLUX DISEASE WITHOUT ESOPHAGITIS Status: Chronic (9) Tobacco abuse Code(s): Z72.0 - TOBACCO USE Status: Chronic - Plan cont current plan of care, continue antibiotics, respiratory therapy * continue cefepime, azithromycin * currently on [facility] for COPD * now will assess her need for home oxygen * medication reviewed as below * symptomatic treatment. Review of Systems - Review of Systems Eyes: negative: Pain, Vision Change, Conjunctivae Inflammation, Eyelid Inflammation, Redness, Other ENT: negative: Ear Pain, Ear Discharge, Nose Pain, Nose Discharge, Nose Congestion, Mouth Pain, Mouth Swelling, Throat Pain, Throat Swelling, Other Respiratory: negative: Cough, Dry, Shortness of Breath, Hemoptysis, SOB with Excertion, Pleuritic Pain, Sputum, Wheezing Cardiovascular: negative: chest pain, palpitations, orthopnea, paroxysmal nocturnal dyspnea, edema, light headedness, other Gastrointestinal: negative: Nausea, Vomiting, Abdominal Pain, Diarrhea, Constipation, Melena, Hematochezia, Other Genitourinary: negative: Dysuria, Frequency, Incontinence, Hematuria, Retention , Other Musculoskeletal: negative: Neck Pain, Shoulder Pain, Arm Pain, Back Pain, Hand Pain, Leg Pain, Foot Pain, Other Skin: negative: Rash, Lesions, Bc, Bruising, Other - Medications/Allergies Allergies/Adverse Reactions: Allergies Allergy/AdvReac Type Severity Reaction Status Date / Time Quinolones Allergy Verified 10/26/17 20:01 Medications: Current Medications Acetaminophen (Tylenol Elixir) 650 mg PO Q6H PRN PRN Reason: Fever > 101 or Mild Pain Acetaminophen (Tylenol) 650 mg [place] Q6H PRN PRN Reason: Fever > 101 or Mild Pain Acetaminophen (Tylenol) 650 mg PO Q4H PRN PRN Reason: Headache/Fever or Pain Last Admin: 10/29/17 04:22 Dose: 650 mg Albuterol/Ipratropium (Duoneb) 3 ml NEB [id number] [facility] Last Admin: 10/30/17 10:31 Dose: 3 ml Albuterol/Ipratropium (Duoneb) 3 ml NEB Q2H PRN PRN Reason: SOB &/or Wheezing Budesonide (Pulmicort Neb Solution) 0.5 mg INH BID-RT [facility] Last Admin: 10/30/17 06:18 Dose: 0.5 mg Calcium Carbonate (Tums) 1,000 mg PO Q4H PRN PRN Reason: Heartburn or Indigestion Docusate Sodium (Colace) 100 mg PO BID [facility] Last Admin: 10/30/17 09:16 Dose: Not Given Enoxaparin Sodium (Lovenox) 40 mg SC 2100 [facility] Last Admin: 10/29/17 20:42 Dose: 40 mg Guaifenesin (Robitussin Sf) 200 mg PO Q4H PRN PRN Reason: Cough Last Admin: 10/29/17 04:22 Dose: 200 mg Guaifenesin (Mucinex) 600 mg PO Q12HR [facility] Last Admin: 10/30/17 09:15 Dose: 600 mg Azithromycin 500 mg/ Sodium (Chloride) 250 mls @ 250 mls/hr IVPB Q24HR [facility] Last Admin: 10/29/17 12:47 Dose: 250 mls Cefepime HCl 1 gm/Miscellaneous Medication 1 each/ Sterile Water 10 mls @ 120 mls/hr SLOW IVP 0200,1400 [facility] Last Admin: 10/30/17 02:20 Dose: 10 mls Loratadine (Claritin) 10 mg PO QPM [facility] Last Admin: 10/29/17 20:41 Dose: Not Given Mineral Oil/White Petrolatum (Lacri-Lube Ointment) 0 gm EA EYE PRN PRN PRN Reason: Dry Eyes Nicotine (Nicoderm Patch) 14 mg TD Q24HR PRN PRN Reason: Smoking craving Last Admin: 10/29/17 20:41 Dose: 14 mg Ondansetron HCl (Zofran) 4 mg IVP Q6H PRN PRN Reason: Nausea/Vomiting Pantoprazole Sodium (Protonix) 40 mg PO BID [facility] Last Admin: 10/30/17 09:15 Dose: 40 mg Saccharomyces Boulardii (Florastor) 250 mg PO DAILY [facility] Last Admin: 10/30/17 09:15 Dose: 250 mg Senna (Senokot) 2 tab PO HSPRN PRN PRN Reason: Constipation Sodium Chloride (Flush - Normal Saline) 10 ml IVF PRN PRN PRN Reason: Saline Flush Last Admin: 10/29/17 20:42 Dose: 10 ml
[2017-10-30] MEDS: Azithromycin 500 MG in Sodium Chloride 0.9% 250 ML 250 ML IVPB SCH (12:29)
[2017-10-30] MEDS ORDERED: Fluticasone Propionate Nasal Spray 16 gm Bottle NASAL SCH (13:45)
[2017-10-30] MEDS: Loratadine 10 MG TAB PO SCH (20:07)
[2017-10-30] MEDS: Nicotine 14 MG PATCH TD PRN (21:29)
--- NOTE | 2017-10-30 22:53 | PRG ---
DATE OF SERVICE: 10/30/2017 SERVICE: Pulmonary Medicine. INTERVAL HISTORY: The patient is doing really well today. She has been up walking around all day lo ng. Her saturations are much improved. She started coughing up significant amount of yellow sputum. It is starting to taper back off, but this time, she feels that she has less crud to get out. She feels that she can get a ku breath. Otherwise, there has been no interval change to her conditio n and she does not endorse any overnight events. PHYSICAL EXAMINATION: VITAL SIGNS: Afebrile, pulse 113, blood pressure 162/82, respirations 18, saturation 96% on 3 liters nasal cannula. GENERAL: The patient is awake and alert, in no apparent distress. LUNGS: Much improved air entry. There is a prolonged expiratory phase with wheezing. No crackles o r rhonchi are appreciated today. HEART: Normal rate, regular. ABDOMEN: Soft, nontender, nondistended. Bowel sounds are positive. MUSCULOSKELETAL: No cyanosis or clubbing. Trace pitting in the bilateral lower extremities. NEUROLOGIC: Grossly nonfocal. LABORATORY DATA: WBC 8.0, hemoglobin 12.8, platelets 242,000. TSH 0.79. ASSESSMENT: 1. Acute hypoxic respiratory failure, improving. 2. Community-acquired pneumonia. 3. Septic shock, resolving. 4. Anterior mediastinal mass. DISCUSSION AND PLAN: The patient will ultimately require repeat chest x-ray in 4 to 6 weeks to prove the infiltrate is resolved. The anterior mediastinal mass can be addressed during this hospital sta y or at a future visit. It really has nothing to do with her current presentation. The differential is wide and includes thymic mass, germ cell tumor, lymphoma, or ectopic thyroid tissue. Ultimately, biopsy will be required in order to prove what this thing is. Dr. Jovel will resume care in the [facility].
[2017-10-31] MEDS: Cefepime 1 GM, Admixture Fee 1 EACH in Sterile Water 10 ML SLOW IVP SCH (01:40)
[2017-10-31 05:32] LABS: Prothrombin Time 13.4 SEC (12.0-14.7)
[2017-10-31 05:37] LABS: #Eosinphils 0.1 thou/uL (0.0-0.7); #Lymphocytes 1.9 thou/uL (1.20-3.40); #Monocytes 0.8 thou/uL (0.11-0.59); #Neutrophils 5.3 thou/uL (1.40-6.50); %Eosinophils 0.9 % (0.0-10.0); %Lymphocytes 24.1 % (21.0-51.0); %Monocytes 9.5 % (0.0-10.0); %Neutrophils 65.6 % (42.0-75.0); Hemoglobin 12.2 g/dL (12.0-16.0); Mean Corpuscular HGB CONC 32.4 g/dL (32.0-36.0); Mean Corpuscular Hemoglobin 31.6 pg (27.0-31.0); Mean Corpuscular Volume 97.8 fl (81.0-99.0); Mean Platelet Volume 7.3 fL (7.4-10.4); Platelet Count 315 thou/uL (130-400); RBC Distribution Width 12.2 % (11.5-14.5); Red Blood Cell (RBC) Count 3.87 mill/uL (4.20-5.40)
[2017-10-31 06:10] LABS: ALT (SGPT) 43 U/L (8-55); AST (SGOT) 28 U/L (5-34); Albumin 3.4 g/dL (3.5-5.0); Alkaline Phosphatase 97 U/L (40-150); Anion Gap 13 mmol/L (10-20); BUN (Urea Nitrogen) 11 mg/dL (9.8-20.1); Bilirubin, Total 0.3 mg/dL (0.2-1.2); Calc. Creatinine Clearance 66 mL/min (70-130); Calcium 9.4 mg/dL (7.8-10.44); Carbon Dioxide 28 mmol/L (22-29); Chloride 102 mmol/L (98-107); Estimated GFR-MDRD Greater than 90; Globulin 3.3 g/dL (2.4-3.5); Glucose 111 mg/dL (70-105); Potassium 4.3 mmol/L (3.5-5.1); Protein, Total 6.7 g/dL (6.0-8.3); Sodium 139 mmol/L (136-145)
[2017-10-31] MEDS: Budesonide 0.5 MG/2 ML NEB INH SCH (07:22)
[2017-10-31] MEDS: Docusate 100 MG CAP PO SCH (08:47)
[2017-10-31] MEDS: Saccharomyces boulardii 250 MG CAP PO SCH (08:48)
[2017-10-31] MEDS: guaiFENesin ER 600 MG TAB PO SCH (08:48)
--- NOTE | 2017-10-31 08:54 | PRG ---
DATE OF SERVICE: 10/31/2017 SUBJECTIVE: The patient is doing well, has no complaints. PHYSICAL EXAMINATION: VITAL SIGNS: Temperature 98.6, pulse 108, respiration 16, O2 sat 95% on 3 liters. HEENT: Unremarkable. NECK: No JVD. CHEST: Clear without wheezing or rhonchi. CARDIAC: S1 and S2 regular. ABDOMEN: Soft. EXTREMITIES: No edema. LABORATORY DATA: White blood cell count 8, hematocrit 37.9, platelet count 315. INR 1.0. Sodium 13 9, potassium 4.3, chloride 102, CO2 28, BUN 11, creatinine 0.6, glucose 111. ASSESSMENT: 1. Right upper lobe pneumonia. 2. A 2-cm anterior mediastinal mass. 3. Status post acute hypoxic respiratory failure. PLAN: I doubt the anterior mediastinal mass is anything that is malignant. Differential would be th ymic tissue, ectopic thyroid tissue or other things. This can be worked with an outpatient PET scan as a biopsy of this going to be very difficult. I would recommend addressing this with an outpatient PET scan, I think she is ready to go home. She will likely need some home oxygen.
[2017-10-31] MEDS ORDERED: Fluticasone Propionate Nasal Spray 16 gm Bottle NASAL SCH (09:00)
[2017-10-31] MEDS ORDERED: Cefdinir 300 MG CAP PO SCH (09:00)
--- NOTE | 2017-10-31 10:20 | PDOC.PN ---
- Subjective Encounter Start Date: 10/31/17 Encounter Start Time: 08:10 Patient seen and examined. No new complaints. No overnight events - Objective Resuscitation Status: Resuscitation Status FULL:Full Resuscitation MAR Reviewed: Yes Vital Signs & Weight: Vital Signs (12 hours) Temp Pulse Resp BP BP Pulse Ox 10/31/17 08:00 97.8 F 111 H 18 138/69 93 L 10/31/17 07:22 108 H 16 95 10/31/17 07:20 108 H 16 95 10/31/17 03:36 98.6 F 108 H 16 141/72 H 96 10/31/17 02:01 103 H 16 97 10/30/17 23:55 99.2 F 109 H 14 155/81 H 93 L Weight Admit Weight 117 lb 2 oz Weight 101 lb 6 oz Most Recent Monitor Data Heart Rate from ECG 105 NIBP 125/62 NIBP BP-Mean 73 Respiration from ECG 25 SpO2 100 I&O: 10/30/17 10/31/17 11/01/17 06:59 06:59 06:59 Intake Total 3500 2200 Output Total 1975 3800 Balance 1525 -1600 Result Diagrams: 10/31/17 05:09 10/31/17 05:09 EKG Reviewed by me: Yes Phys Exam - Physical Examination Constitutional: NAD HEENT: PERRLA, moist MMs, sclera anicteric Neck: no JVD, supple Respiratory: no wheezing, no rales, no rhonchi Cardiovascular: RRR, no significant murmur, no rub Gastrointestinal: soft, non-tender, no distention, positive bowel sounds Musculoskeletal: no edema, pulses present Neurological: non-focal, normal sensation, moves all 4 limbs Psychiatric: normal affect, A&O x 3 Skin: no rash, normal turgor Dx/Plan (1) Acute respiratory failure with hypoxia Code(s): J96.01 - ACUTE RESPIRATORY FAILURE WITH HYPOXIA Status: Acute (2) COPD exacerbation Code(s): J44.1 - CHRONIC OBSTRUCTIVE PULMONARY DISEASE W (ACUTE) EXACERBATION Status: Acute (3) Community acquired bacterial pneumonia Code(s): J15.9 - UNSPECIFIED BACTERIAL PNEUMONIA Status: Acute (4) Hypomagnesemia Code(s): E83.42 - HYPOMAGNESEMIA Status: Acute (5) Mediastinal mass Status: Acute (6) Sepsis with acute organ dysfunction Code(s): A41.9 - SEPSIS, UNSPECIFIED ORGANISM; R65.20 - SEVERE SEPSIS WITHOUT SEPTIC SHOCK Status: Acute (7) Transaminitis Code(s): R74.0 - NONSPEC ELEV OF LEVELS OF TRANSAMNS & LACTIC ACID DEHYDRGNSE Status: Acute (8) GERD (gastroesophageal reflux disease) Code(s): K21.9 - GASTRO-ESOPHAGEAL REFLUX DISEASE WITHOUT ESOPHAGITIS Status: Chronic (9) Tobacco abuse Code(s): Z72.0 - TOBACCO USE Status: Chronic - Plan cont current plan of care, continue antibiotics, social worker school, respiratory therapy * her room air saturation drops to below 85% at rest * she will need home oxygen * medication reviewed as below * Symptomatic treatment * see discharge summerrobert for details.. Review of Systems - Review of Systems ENT: negative: Ear Pain, Ear Discharge, Nose Pain, Nose Discharge, Nose Congestion, Mouth Pain, Mouth Swelling, Throat Pain, Throat Swelling, Other Respiratory: negative: Cough, Dry, Shortness of Breath, Hemoptysis, SOB with Excertion, Pleuritic Pain, Sputum, Wheezing Cardiovascular: negative: chest pain, palpitations, orthopnea, paroxysmal nocturnal dyspnea, edema, light headedness, other Gastrointestinal: negative: Nausea, Vomiting, Abdominal Pain, Diarrhea, Constipation, Melena, Hematochezia, Other Genitourinary: negative: Dysuria, Frequency, Incontinence, Hematuria, Retention , Other Musculoskeletal: negative: Neck Pain, Shoulder Pain, Arm Pain, Back Pain, Hand Pain, Leg Pain, Foot Pain, Other Skin: negative: Rash, Lesions, Bc, Bruising, Other - Medications/Allergies Allergies/Adverse Reactions: Allergies Allergy/AdvReac Type Severity Reaction Status Date / Time Quinolones Allergy Verified 10/26/17 20:01 Medications: Current Medications Acetaminophen (Tylenol Elixir) 650 mg PO Q6H PRN PRN Reason: Fever > 101 or Mild Pain Acetaminophen (Tylenol) 650 mg ID Q6H PRN PRN Reason: Fever > 101 or Mild Pain Acetaminophen (Tylenol) 650 mg PO Q4H PRN PRN Reason: Headache/Fever or Pain Last Admin: 10/29/17 04:22 Dose: 650 mg Albuterol/Ipratropium (Duoneb) 3 ml NEB [id number] Last Admin: 10/31/17 07:20 Dose: 3 ml Albuterol/Ipratropium (Duoneb) 3 ml NEB Q2H PRN PRN Reason: SOB &/or Wheezing Budesonide (Pulmicort Neb Solution) 0.5 mg INH BID-RT [facility] Last Admin: 10/31/17 07:22 Dose: 0.5 mg Calcium Carbonate (Tums) 1,000 mg PO Q4H PRN PRN Reason: Heartburn or Indigestion Cefdinir (Omnicef) 600 mg PO DAILY [facility] Last Admin: 10/31/17 08:53 Dose: 600 mg Docusate Sodium (Colace) 100 mg PO BID [facility] Last Admin: 10/31/17 08:47 Dose: Not Given Fluticasone Propionate (Flonase Nasal [place]) 0 gm NASAL DAILY [facility] Last Admin: 10/31/17 08:48 Dose: 2 spr Guaifenesin (Robitussin Sf) 200 mg PO Q4H PRN PRN Reason: Cough Last Admin: 10/29/17 04:22 Dose: 200 mg Guaifenesin (Mucinex) 600 mg PO Q12HR [facility] Last Admin: 10/31/17 08:48 Dose: 600 mg Azithromycin 500 mg/ Sodium (Chloride) 250 mls @ 250 mls/hr IVPB Q24HR [facility] Last Admin: 10/30/17 12:29 Dose: 250 mls Loratadine (Claritin) 10 mg PO QPM [facility] Last Admin: 10/30/17 20:07 Dose: Not Given Mineral Oil/White Petrolatum (Lacri-Lube Ointment) 0 gm EA EYE PRN PRN PRN Reason: Dry Eyes Nicotine (Nicoderm Patch) 14 mg TD Q24HR PRN PRN Reason: Smoking craving Last Admin: 10/30/17 21:29 Dose: 14 mg Ondansetron HCl (Zofran) 4 mg IVP Q6H PRN PRN Reason: Nausea/Vomiting Pantoprazole Sodium (Protonix) 40 mg PO BID [facility] Last Admin: 10/31/17 08:48 Dose: 40 mg Saccharomyces Boulardii (Florastor) 250 mg PO DAILY [facility] Last Admin: 10/31/17 08:48 Dose: 250 mg Senna (Senokot) 2 tab PO HSPRN PRN PRN Reason: Constipation Sodium Chloride (Flush - Normal Saline) 10 ml IVF PRN PRN PRN Reason: Saline Flush Last Admin: 10/29/17 20:42 Dose: 10 ml
--- NOTE | 2017-10-31 11:43 | DIS ---
PRIMARY CARE PHYSICIAN: [facility] call admission. DATE OF ADMISSION: 10/26/2017 DATE OF DISCHARGE: 10/31/2017 DISCHARGE DISPOSITION: Home with home oxygen. PRIMARY DISCHARGE DIAGNOSES: 1. Septic shock, improved. 2. Sepsis with acute organ dysfunction. 3. Acute respiratory failure with hypoxia requiring home oxygen. 4. Community-acquired bacterial pneumonia. 5. Chronic obstructive pulmonary disease exacerbation. 6. Hypomagnesemia. 7. Mediastinal mass. SECONDARY DISCHARGE DIAGNOSES: Gastroesophageal reflux disease, tobacco abuse disorder, mild protein calorie malnutrition. PRIMARY PROCEDURE/OPERATION: None. RADIOLOGICAL INVESTIGATION: Chest x-ray. CT chest showed mediastinal mass. SIGNIFICANT LABORATORIES: WBC 8.0, hemoglobin 12.2, platelet 315. INR 1.0, pH 7.23, CO2 of 40.8. S odium 139, potassium 4.3, BUN 11, creatinine 0.66. LFT normal. Transaminitis, improved. Urine legi onella and Streptococcal pneumonia antigen negative. Respiratory virus panel negative. DISCHARGE MEDICATIONS: Omnicef 300 mg twice daily for 7 days, Flonase nasal spray daily, Mucinex 600 mg twice daily, Dulera 2 puffs inhalation b.i.d., Protonix 40 mg p.o. daily, Florastor 250 mg p.o. d aily, Ventolin HFA 2 puffs q.6 hourly p.r.n. CONTRAINDICATIONS: None. CODE STATUS: FULL CODE. INPATIENT CONSULTANTS: Dr. Jovel and Dr. Woo was following while in hospital. TEST RESULTS PENDING ON DISCHARGE: None. ALLERGIES: QUINOLONES. DISCHARGE PLAN: Post hospital, the patient will follow up with Dr. Alejandro Jovel in 2-3 weeks and matt ritchie will follow up with primary care physician, Dr. Adama Vasquez in 1 week. HOSPITAL COURSE: A 62-year-old female who was admitted by Dr. Estuardo Alcazar. Please see his H&P for f urther details. The patient was admitted on 10/26/2017 with a fever, cough, and upper respiratory tr act infection. The patient was also having COPD exacerbation. She has ongoing history of tobacco ab use disorder. She was found with a community-acquired pneumonia. She was also having sepsis with ac pokagon organ dysfunction and she was septic on admission. Her oxygen saturation was in 80s and blood pr essure was in the 50s. The patient required Levophed therapy and patient was admitted in CCU. Subse quently, upon stabilization, the patient was transferred to telemetry floor. She had abnormal electr olytes that was corrected while in hospital. Despite treating her pneumonia and COPD optimally while in hospital by the time of discharge her oxyg en saturation was still below 85% on room air and that is why we arranged home oxygen therapy. Upon discharge, we changed to Omnicef for another 7 days. Rest of medication will be given as above. All new medication prescriptions sent to her pharmacy. Her culture remained negative. Dr. Med draper red her for discharge as well today. The patient is seen and examined at bedside today. Please see my progress note from today for furthe r detail. She can be discharged home with home oxygen upon arrangement.
[2017-10-31] MEDS: Azithromycin 500 MG in Sodium Chloride 0.9% 250 ML 250 ML IVPB SCH (12:10)
[2017-10-31 18:05] VITALS: BP 148/80; TEMP 98.6
== END 2017-10-31 16:45 | disposition home or self-care (01) | DRG 871 ==
LOC: ERS 16:32 → CCU 18:52 → 2NO 10-27 11:00
PROVIDERS: ADMIT Family Medicine; ATTEND Family Medicine
DX: A41.9 Sepsis, unspecified organism (principal); J96.01 Acute respiratory failure with hypoxia; R65.21 Severe sepsis with septic shock; J18.9 Pneumonia, unspecified organism; E87.2 Acidosis; J44.1 Chronic obstructive pulmonary disease with (acute) exacerbation; E44.1 Mild protein-calorie malnutrition; Z68.1 Body mass index [BMI] 19.9 or less, adult; E78.5 Hyperlipidemia, unspecified; F17.210 Nicotine dependence, cigarettes, uncomplicated; K21.9 Gastro-esophageal reflux disease without esophagitis; E83.42 Hypomagnesemia; F32.9 Major depressive disorder, single episode, unspecified; K57.90 Diverticulosis of intestine, part unspecified, without perforation or abscess without bleeding; E66.9 Obesity, unspecified; Z68.34 Body mass index [BMI] 34.0-34.9, adult; M54.9 Dorsalgia, unspecified; Z99.81 Dependence on supplemental oxygen
CPT/HCPCS: 36415; 36556; 71045; 71260; 80048; 80053; 80202; 82533; 82805; 83605; 83735; 84100; 84443; 85007; 85025; 85027; 85610; 87633; 87798; 87899; 93005; 94640; 94660; 96365; 96366; 96368; A4216; J0456; J0692; J1650; J2185; J3370; J3475; J7050; J7620; J7626

== ENCOUNTER 2017-11-21 20:26 | Inpatient (IN) | payer OTHER ==
--- NOTE | 2017-11-21 22:27 | RAD ---
SINGLE VIEW OF THE CHEST: Comparison: 10-27-17 History: COPD exacerbation. FINDINGS: Single view of the chest shows a normal sized cardiomediastinal silhouette. A web like opacity is see n adjacent to the left hemidiaphragm which may represent atelectasis or an infiltrate. No pleural eff usion is seen. IMPRESSION: Left lower lobe atelectasis versus infiltrate. POS: [facility]
[2017-11-21] MEDS ORDERED: Piperacillin/Tazobactam 4.5 GM in Sodium Chloride 0.9% 100 ML IVPB SCH (22:45)
[2017-11-21 23:15] LABS: #Lymphocytes 0.8 thou/uL (1.20-3.40); #Monocytes 0.3 thou/uL (0.11-0.59); #Neutrophils 11.9 thou/uL (1.40-6.50); %Basophils 0.1 % (0.0-1.0); %Eosinophils 0.1 % (0.0-10.0); %Lymphocytes 5.8 % (21.0-51.0); %Neutrophils 92.1 % (42.0-75.0); Hemoglobin 11.2 g/dL (12.0-16.0); Mean Corpuscular HGB CONC 33.2 g/dL (32.0-36.0); Mean Corpuscular Hemoglobin 32.2 pg (27.0-31.0); Mean Corpuscular Volume 96.9 fl (81.0-99.0); Mean Platelet Volume 7.4 fL (7.4-10.4); Platelet Count 258 thou/uL (130-400); RBC Distribution Width 12.3 % (11.5-14.5); Red Blood Cell (RBC) Count 3.49 mill/uL (4.20-5.40); White Blood Cell (WBC) Count 12.9 thou/uL (4.8-10.8)
[2017-11-21 23:37] LABS: ALT (SGPT) 80 U/L (8-55); AST (SGOT) 74 U/L (5-34); Albumin 3.4 g/dL (3.5-5.0); Alkaline Phosphatase 114 U/L (40-150); Anion Gap 11 mmol/L (10-20); BUN (Urea Nitrogen) 10 mg/dL (9.8-20.1); Bilirubin, Total 0.6 mg/dL (0.2-1.2); Calc. Creatinine Clearance 0 mL/min (70-130); Calcium 9.2 mg/dL (7.8-10.44); Carbon Dioxide 25 mmol/L (22-29); Chloride 105 mmol/L (98-107); Estimated GFR-MDRD 81; Globulin 3.7 g/dL (2.4-3.5); Glucose 177 mg/dL (70-105); Potassium 3.9 mmol/L (3.5-5.1); Protein, Total 7.1 g/dL (6.0-8.3); Sodium 137 mmol/L (136-145)
[2017-11-22] MEDS: Sodium Chloride 0.9% 1,000 ML IV SCH ×2 (01:28→09:12)
[2017-11-22 01:30] VITALS: BMI 20.6
[2017-11-22] MEDS ORDERED: Ondansetron ODT 4 MG TAB PO PRN (09:18)
[2017-11-22] MEDS ORDERED: Acetaminophen 500 MG TAB PO PRN (09:18)
[2017-11-22] MEDS ORDERED: Benzonatate 100 MG CAP PO PRN (09:18)
[2017-11-22] MEDS ORDERED: Ondansetron HCl/PF 4 MG/2 ML Vial IVP PRN (09:18)
[2017-11-22] MEDS ORDERED: Mometasone/Formoterol 120 PUFF INHALER INH SCH (10:00)
--- NOTE | 2017-11-22 10:07 | HP ---
DATE OF ADMISSION: 11/22/2017 PRIMARY CARE PHYSICIAN: Dr. Gavin Vasquez. CHIEF COMPLAINT: Low blood pressure and shortness of breath. HISTORY OF PRESENT ILLNESS: This is a 62-year-old female who presents to [facility] complaining of shortness of breath and skin tingling after receiving a Rocephin inje ction by her primary care provider on 11/21/2017. The patient apparently presented to her primary [facility] provider's office after noticing her oxygen level decreasing into the upper 80% range on room air after a recent admission in early 10/2017 for suspected pneumonia and COPD exacerbation. The patient states she bought the pulse oximeter to monitor her heart rate and oxygen level after being placed o n home oxygen at 2-2.5 liters per minute nasal cannula. The patient states she uses the oxygen inter mittently, but does go outside to take her dogs on a walk without oxygen. The patient states she not iced her pulse and oxygen level decreasing and presented to her primary care provider's office for ev aluation. The patient states she was evaluated by her primary care provider receiving a dose of Roce phin with plans to receive Rocephin on a daily basis for approximately a week. The patient developed tingling in her hands, face and skin without rash or difficulty swallowing or tongue swelling and wa s referred to the emergency room for evaluation. In the [place] [facility], the patient received 2 liters of normal saline, IV Solu-Medrol and was noted with O2 saturations in approximately 89% on room air. The patient states she has been doing well after recent admission to [facility] from 10/26/2017 through 10/31/2017. The patient was compliant with completing h er antibiotic therapy with Omnicef and uses her home inhalers including Dulera and Flonase. The mariana ent denied any other exposure history, travel documented fever at home. In the emergency room, florida metcalf also received IV normal saline, Zosyn, and vancomycin and was referred to the Hospitalist Service for admission. PAST MEDICAL HISTORY: 1. Status post community-acquired pneumonia, treated 10/2017. 2. Status post septic shock secondarily to community-acquired pneumonia. 3. Chronic hypoxic respiratory failure on chronic oxygen supplementation at 2 liters per minute by n elizabeth cannula. 4. Chronic obstructive pulmonary disease. 5. History of mediastinal mass, workup pending. 6. Tobacco abuse. 7. Diverticulosis. 8. Fibromyalgia. 9. Chronic back pain. 10. Gastroesophageal reflux disease. PAST SURGICAL HISTORY: 1. Status post tonsillectomy in 1970. 2. Status post appendectomy in 1984. 3. Status post cholecystectomy. 4. Status post EGD with moderate gastritis in the mid and distal stomach. 5. Status post colonoscopy in 2013. 6. Status post multiple back injections for chronic back pain. CURRENT MEDICATIONS: 1. Flonase 1 spray in each naris daily. 2. Dulera two puffs inhaled b.i.d. 3. Protonix 40 mg p.o. daily. 4. Florastor 250 mg p.o. daily. ALLERGIES: To QUINOLONES. FAMILY HISTORY: Father with emphysema. SOCIAL HISTORY: Patient resides in [place], [place]. . Smokes up to half a pack of cigarettes daily. No alcohol or illicit drug use. REVIEW OF SYSTEMS: The following complete review of systems was negative, unless otherwise mentioned in the HPI or below: Constitutional: Weight loss or gain, ability to conduct usual activities. Skin: Rash, itching. Eyes: Double vision, pain. ENT/Mouth: Nose bleeding, neck stiffness, pain, tenderness. Cardiovascular: Palpitations, dyspnea on exertion, orthopnea. Respiratory: Shortness of breath, wheezing, cough, hemoptysis, fever or night sweats. Gastrointestinal: Poor appetite, abdominal pain, heartburn, nausea, vomiting, constipation, or diarr hea. Genitourinary: Urgency, frequency, dysuria, nocturia. Musculoskeletal: Pain, swelling. Neurologic/Psychiatric: Anxiety, depression. Allergy/Immunologic: Skin rash, bleeding tendency. PHYSICAL EXAMINATION: VITAL SIGNS: Currently, blood pressure 116/59, pulse 91, respiratory rate 18, temperature 97.7 degre es Fahrenheit, O2 saturation 100% on room air. GENERAL APPEARANCE: This is a 62-year-old female, alert and oriented x3, pleasant, convers ant, in no acute distress. HEENT: Pupils are equal, round, and reactive to light and accommodation. Extraocular muscles are in tact. No scleral icterus, no conjunctival injection. Nares patent. OP is clear. NECK: Supple, no cervical adenopathy, no thyromegaly, no carotid bruits, no JVD appreciated. Cervic al spine with full active and passive range of motion. No meningeal signs appreciated. CHEST: Lungs are clear to auscultation bilaterally. CARDIOVASCULAR: S1, S2, without noted murmur. ABDOMEN: Flat, soft, nontender, nondistended. Bowel sounds are positive in all four quadrants. The re is no hepatosplenomegaly, no abdominal bruits, no rebound or guarding appreciated. EXTREMITIES: Warm and dry with fair turgor. No clubbing, cyanosis or asymmetric edema appreciated. Pulses palpable distally at the dorsalis pedis, posterior tibial, and popliteal arteries bilaterally . Capillary refill less than 2 seconds. NEUROLOGIC: Cranial nerves II through XII are grossly intact. No focal or lateralizing signs apprec iated. PERTINENT LABORATORY DATA AND X-RAY FINDINGS: Basic metabolic profile within normal limits. Lactic acid 1.0, calcium 9.2, AST 74, ALT of 80, alkaline phosphatase 114. Albumin 3.4. CBC showed a white blood cell count of 12.9, hemoglobin 11, hematocrit 34, platelet count 258 with 93% neutrophils. Bl ood cultures x2 from 11/21/2017 showed no growth to date. Portable chest x-ray dated 11/21/2017 show ed questionable lower lobe atelectasis versus infiltrate. EKG dated 11/21/2017 by my interpretation shows sinus mechanism with heart rates in the 90s. Normal R-wave progression noted in the precordial leads. Normal axis. No acute ST-T wave changes appreciated. ASSESSMENT AND PLAN: 1. Left lower lobe infiltrate/pneumonia. Suspected given the radiographic findings. We will contin ue treatment for suspected pneumonia with cefepime 2 grams IV q.12 hours. We will continue general p ulmonary supportive measures. Bronchodilator therapy with DuoNeb. Dulera two puffs inhaled b.i.d. Oxygen supplementation as needed. 2. Chronic hypoxic respiratory failure. Continue oxygen supplementation to maintain O2 saturations greater than or equal to 90%. See #1 above. 3. Hypotension. Resolved currently. We will continue to encourage increased free water intake. Av oid antihypertensive medications. Serial monitoring. 4. Neutrophilic leukocytosis. Suspect secondarily to #1 and potential component of Solu-Medrol. Re peat CBC in the a.m. 5. Transaminitis. Mild. We will repeat LFTs in the a.m. Consider acute hepatitis A, B, and C pane l if remaining elevated. 6. Tobacco abuse. We will offer smoking cessation resources prior to discharge. 7. Prophylaxis. Sequential compression devices while in bed. Pepcid 20 mg p.o. b.i.d. 8. Code status is full. Surrogate medical decision maker is patient's spouse.
[2017-11-22] MEDS: Cefepime 2 GM, Syringe 2.5 ML in Sodium Chloride 0.9% 10 ML SLOW IVP SCH ×2 (11:36→21:26)
[2017-11-22] MEDS: Mometasone/Formoterol 120 PUFF INHALER INH SCH (19:31)
[2017-11-22] MEDS ORDERED: Cefepime 2 GM in Sodium Chloride 0.9% 100 ML IVPB SCH (21:00)
[2017-11-22] MEDS: Famotidine 20 MG TAB PO SCH (21:26)
[2017-11-23 06:21] LABS: ALT (SGPT) 54 U/L (8-55); AST (SGOT) 30 U/L (5-34); Albumin 3.2 g/dL (3.5-5.0); Alkaline Phosphatase 95 U/L (40-150); Anion Gap 10 mmol/L (10-20); BUN (Urea Nitrogen) 10 mg/dL (9.8-20.1); Bilirubin, Total 0.3 mg/dL (0.2-1.2); Calc. Creatinine Clearance 69 mL/min (70-130); Calcium 9.2 mg/dL (7.8-10.44); Carbon Dioxide 27 mmol/L (22-29); Chloride 109 mmol/L (98-107); Estimated GFR-MDRD 85; Globulin 3.4 g/dL (2.4-3.5); Glucose 83 mg/dL (70-105); Potassium 3.8 mmol/L (3.5-5.1); Protein, Total 6.6 g/dL (6.0-8.3); Sodium 142 mmol/L (136-145)
[2017-11-23 06:39] LABS: Eosinophils 1 % (0-10); Hemoglobin 10.8 g/dL (12.0-16.0); Lymphocytes 37 % (21-51); MDiff Complete? YES; Mean Corpuscular Hemoglobin 32.2 pg (27.0-31.0); Mean Corpuscular Volume 97.7 fl (81.0-99.0); Mean Platelet Volume 7.4 fL (7.4-10.4); Monocytes 7 % (0-10); Neutrophil 55 % (42-75); PLT Morphology Comment Appears Adequate; Platelet Count 306 thou/uL (130-400); RBC Distribution Width 12.3 % (11.5-14.5); RBC Morphology Normal; Red Blood Cell (RBC) Count 3.35 mill/uL (4.20-5.40); White Blood Cell (WBC) Count 9.7 thou/uL (4.8-10.8)
[2017-11-23] MEDS: Mometasone/Formoterol 120 PUFF INHALER INH SCH (07:33)
[2017-11-23] MEDS: Famotidine 20 MG TAB PO SCH (08:44)
[2017-11-23] MEDS ORDERED: Fluticasone Propionate Nasal Spray 16 gm Bottle NASAL SCH (09:00)
[2017-11-23] MEDS ORDERED: Saccharomyces boulardii 250 MG CAP PO SCH (09:00)
[2017-11-23] MEDS: Cefepime 2 GM, Syringe 2.5 ML in Sodium Chloride 0.9% 10 ML SLOW IVP SCH (11:00)
[2017-11-23 12:45] VITALS: BP 150/79; TEMP 98
--- NOTE | 2017-11-24 07:00 | DIS ---
PRIMARY CARE PHYSICIAN: Dr. Adama Vasquez DATE OF ADMISSION: 11/22/2017 DATE OF DISCHARGE: 11/23/2017 DISCHARGE DIAGNOSES: 1. Healthcare associated pneumonia. 2. Acute on chronic hypoxemic respiratory failure. 3. Severe sepsis, resolved. 4. Chronic obstructive pulmonary disease with acute exacerbation. 5. History of mediastinal mass with pending workup. 6. Ongoing tobacco abuse. Last smoked about a month ago. 7. Diverticulosis. 8. Fibromyalgia. 9. Chronic back pain. 10. Gastroesophageal reflux disease. CONSULTATIONS: None. PROCEDURES: None. HISTORY OF PRESENT ILLNESS: Ms. Krishna is a 62-year-old female who was admitted 11/22/2017. She pre sented to the emergency department for low blood pressure and shortness of breath. She had been admi tted here recently from 10/26/2017 to 10/31/2017 she was started antibiotics which she completed. She did well initially, but then developed a cough productive of green sputum. [facility] and was started on antibiotics, but was not improving. Dr. Vasquez brought her in and then gave her a dose of IM Rocephin and during her monitoring, immediately thereafter, she developed ting ling and shortness of breath and flushing. She was sent to the emergency department for evaluation o f possible drug reaction in [place]. There she was hypotensive. She required 2 liters normal saline, given IV Solu-Medrol and placed on o xygen for oxygen saturation of 89% on room air. She was transferred here for further treatment and e valuation. HOSPITAL COURSE: The patient was seen and examined by Dr. Eris Louise. She was placed in inpatient status, continued on IV steroids and antibiotics. Chest x-ray initially showed a left linear opacit y consistent with atelectasis or pneumonia. Overnight 11/22/2017 to 11/23/2017 she remained afebrile . Blood pressure remained normal. Pulse rate remained normal and she was satting 98-100% on room ai r. She was feeling much better, was stable for discharge with outpatient followup. PHYSICAL EXAMINATION: The patient was seen and examined on the day of discharge. Discharge plan an d disposition was discussed with the patient at the bedside. DISCHARGE MEDICATIONS: 1. Augmentin one p.o. b.i.d. 875 mg, new prescription. 2. Tessalon Perles 100 mg p.o. q.4 hours p.r.n. cough, new prescription. 3. Flonase to continue. 4. Guaifenesin 1200 mg p.o. b.i.d. 5. Dulera 2 puffs inhaled b.i.d. to continue. 6. Protonix 40 mg p.o. daily. 7. Florastor 250 mg p.o. daily to continue. DISCHARGE CONDITION: Stable. DISPOSITION: To be discharged home via private vehicle. DISCHARGE ACTIVITY: Per cardiopulmonary limits. Patient not requiring oxygen presently. FOLLOWUP APPOINTMENTS: 1. Primary care physician within a week. 2. Pulmonary Critical Care per previously scheduled. DISCHARGE DIET: Heart healthy recommended.
== END 2017-11-23 14:45 | disposition home or self-care (01) | DRG 194 ==
LOC: ERS 20:26 → 2NO 11-22 01:06 → 3SE 11-22 20:30
PROVIDERS: ADMIT Family Medicine; ATTEND Family Medicine
DX: J18.9 Pneumonia, unspecified organism (principal); J96.11 Chronic respiratory failure with hypoxia; I95.9 Hypotension, unspecified; J44.0 Chronic obstructive pulmonary disease with (acute) lower respiratory infection; J44.1 Chronic obstructive pulmonary disease with (acute) exacerbation; K21.9 Gastro-esophageal reflux disease without esophagitis; R74.0 Nonspecific elevation of levels of transaminase and lactic acid dehydrogenase [LDH]; F17.210 Nicotine dependence, cigarettes, uncomplicated; Y95 Nosocomial condition; G89.29 Other chronic pain; M79.7 Fibromyalgia; Z23 Encounter for immunization; T78.40XA Allergy, unspecified, initial encounter
CPT/HCPCS: 36415; 71045; 80053; 83605; 85007; 85025; 85027; 90471; 90732; 93005; 96361; 96365; 99406; G0009; J0692; J2543; J3370; J7050

== ENCOUNTER 2017-11-24 08:31 | Outpatient (CLI) | payer OTHER ==
--- NOTE | 2017-11-24 14:04 | PET ---
PET CT: HISTORY: Lung cancer. TECHNIQUE: PET scanning with CT attenuation correction was performed from the base of the brain through the prox imal thighs following the intravenous administration of 12 mCi [id number] in the right antecubital fossa . Imaging was performed after an uptake interval of 55 minutes. COMPARISON: None. CORRELATION: CT chest dated 10/29/17. FINDINGS: No hypermetabolic activity is seen in the anterior mediastinal mass noted on the CT scan. No hypermet abolic cervical, mediastinal, hilar, axillary, or abdominopelvic lymph nodes are seen. No hypermetabo lic pulmonary nodules, liver, adrenal, or skeletal lesions are identified. There is physiologic activity in the GI and tracts, and the visualized portions of the brain. The CT scan used for attenuation correction demonstrates a small left pleural effusion with adjacent atelectatic changes. There is a linear oblique density in the right upper lobe. This may either be du e to atelectatic change or scarring. No abnormal FDG localization is identified in the parenchymal vipul ng findings noted on the CT scan. IMPRESSION: No evidence of metastatic disease. POS: [facility]
== END 2017-11-24 08:32 | disposition home or self-care (01) ==
LOC: PET 08:31
PROVIDERS: ATTEND Internal Medicine Critical Care Medicine
DX: R91.8 Other nonspecific abnormal finding of lung field (principal)
CPT/HCPCS: 78815; A9552

== ENCOUNTER 2018-01-05 08:49 | Outpatient (CLI) | payer OTHER | END 2018-01-05 08:50 | disposition home or self-care (01) | LOC: CP 08:49 | PROVIDERS: ATTEND Internal Medicine Critical Care Medicine | DX: J44.9 Chronic obstructive pulmonary disease, unspecified (principal) | CPT/HCPCS: 94060; 94727; 94729 ==